=== PATIENT | female | born 1960 | race African-American/Black ===

== ENCOUNTER → 2016-10-07 | Outpatient (CLI) | payer MEDICARE, MEDICAID | LOC: WI 09:12 | PROVIDERS: ATTEND Surgery | DX: K80.80 Other cholelithiasis without obstruction (principal) | CPT/HCPCS: 76705 ==

== ENCOUNTER 2016-12-05 07:21 | Day surgery (SDC) | payer MEDICARE, MEDICAID ==
[~2016-12-05 07:21] MED LIST: ACETAMINOPHEN 325 MG TABLET PO PRN; CEFAZOLIN 1 GM/D5W RTU 1 GM/50 ML RTUPB IV PRN; RINGERS SOLUTION,LACTATED 1,000 ML IV PRN
[2016-12-05] MEDS ORDERED: BUPIVACAINE HCL 0.25 % INJ/PF (2.5 MG/1 ML) 30 ML VIAL ONE (07:25)
[2016-12-05] MEDS ORDERED: FENTANYL CITRATE INJ/PF 250 MCG/5 ML AMPULE ONE (10:11)
[2016-12-05] MEDS ORDERED: MIDAZOLAM 2 MG/2 ML INJ ONE (10:12)
[2016-12-05] MEDS ORDERED: PROPOFOL INJ 200 MG/20 ML VIAL IV ONE (10:12)
[2016-12-05] MEDS ORDERED: ACETAMINOPHEN 100 ML IV ONE (10:12)
[2016-12-05] MEDS ORDERED: EPHEDRINE SULFATE INJ 50 MG/1 ML AMPULE ONE (10:12)
[2016-12-05] MEDS ORDERED: HYDROMORPHONE HCL INJ/PF 2 MG/ML AMPULE ONE (10:12)
[2016-12-05] MEDS ORDERED: OXYCODONE-ACETAMINOPHEN 5-325 MG TABLET PO PRN ×3 (11:19→11:48)
[2016-12-05] MEDS ORDERED: MEPERIDINE HCL/PF INJ 25 MG/1 ML DISP.SYRIN IV PRN (11:19)
[2016-12-05] MEDS ORDERED: PROMETHAZINE HCL INJ 25 MG/1 ML VIAL IV PRN ×2 (11:19)
[2016-12-05] MEDS ORDERED: DIPHENHYDRAMINE HCL 50 MG/ML VIAL IV PRN (11:19)
[2016-12-05] MEDS ORDERED: FENTANYL CITRATE INJ/PF 100 MCG/2 ML AMPUL IV PRN ×3 (11:19)
[2016-12-05] MEDS ORDERED: MORPHINE SULFATE 10 MG/ML INJ IV PRN (11:19)
--- NOTE | 2016-12-05 11:44 | Operative Report ---
Operative Report DATE OF SURGERY: 12/05/16 PREOPERATIVE DIAGNOSIS: Symptomatic cholelithiasis POSTOPERATIVE DIAGNOSIS: Symptomatic cholelithiasis OPERATION: Laparoscopic cholecystectomy SURGEON: EMILY PINEDA ANESTHESIA: GA TISSUE REMOVED OR ALTERED: Gallbladder COMPLICATIONS: None ESTIMATED BLOOD LOSS: minimal INTRAOPERATIVE FINDINGS: None PROCEDURE: Informed consent was obtained. Patient was brought to the operating room placed operating table in supine position. After satisfactory induction of general anesthesia, patient's abdomen was prepped and draped in usual sterile fashion. A infraumbilical midline incision was made and dissection carried down to the fascia the peritoneal cavity entered without difficulty. Farfan trocar was inserted. Pneumoperitoneum produced good patient toleration. 5 mm trocar was placed in the subxiphoid location.Two 5 mm trochars were placed in the right subcostal location. The gallbladder was grasped and retracted cephalad over the dome of the liver. The infundibulum of the gallbladder was grasped retracted laterally and inferiorly thus exposing calot's triangle. The cystic duct gallbladder junction was clearly identified and the cystic duct was clipped and divided. Cystic artery was likewise taken. The gallbladder was taken off the gallbladder bed using the hook electrocautery technique. There was some bleeding at the gallbladder bed which was controlled with electrocautery. There was small amount of bile spillage during the case but no stone spillage. The gallbladder was removed with an Endobag through the Farfan trocar site fascial defect. Operative field was irrigated and irrigant aspirated out. Irrigation fluid was clear at the end of the case. Hemostasis appeared excellent. All trochars were removed under the direct vision a laparoscope to ensure hemostasis. The Farfan trocar site fascial defect was closed with interrupted Vicryl sutures. All skin incisions were closed with subcuticular interrupted Monocryl sutures. Marcaine was injected at the port sites. Patient tolerated procedure well no apparent complications and was taken to the recovery area in stable condition.
[2016-12-05] MEDS ORDERED: ONDANSETRON HCL INJ/PF 4 MG/2 ML SDV IV PRN (11:48)
[2016-12-05] MEDS ORDERED: RINGERS SOLUTION,LACTATED 1,000 ML IV PRN (11:48)
--- NOTE | 2016-12-05 11:48 | PDOC DISCHARGE SUMMARY ---
Discharge Summary (SDC) - Discharge Final Diagnosis: Symptomatically cholelithiasis Date of Surgery: 12/05/16 Discharge Date: 12/05/16 Condition: Good Forms: ASU Anesthesia D/C Instruction, Discharge POC-Surgical Service Treatment or Instructions: Laparoscopic cholecystectomy. May discharge patient home when met discharge criteria. Follow-up with me in 2 weeks. Stay active but avoid strenuous activity. May shower tomorrow night. Keep Steri-Strips on. Prescriptions: Oxycodone HCl/Acetaminophen [Percocet 5-325 mg Tablet] 1 tab PO ASDIR PRN #25 tablet PRN Reason: Referrals: EMILY PINEDA MD [ACTIVE STAFF] - Discharge Diet: As Tolerated Discharge Activity: Activity As Tolerated - Stay active but avoid strenuous activity Report the Following to Your Physician Immediately: Yellow Skin, Fever over 101 Degrees, Unusual Bleeding, Drainage-Foul Smelling
[2016-12-05] MEDS ORDERED: ROCURONIUM BROMIDE INJ 50 MG/5 ML VIAL IV ONE (12:06)
[2016-12-05] MEDS ORDERED: ONDANSETRON HCL INJ/PF 4 MG/2 ML SDV ONE (12:06)
[2016-12-05] MEDS ORDERED: NEOSTIGMINE METHYLSULFATE 10 MG/10 ML VIAL ONE (12:06)
[2016-12-05] MEDS ORDERED: GLYCOPYRROLATE INJ 0.4 MG/2 ML VIAL ONE (12:06)
[2016-12-05] MEDS ORDERED: SUCCINYLCHOLINE CHLORIDE INJ 200 MG/10 ML VIAL ONE (12:06)
[2016-12-05 15:58] VITALS: BP 141/75
== END 2016-12-05 15:58 | disposition home or self-care (01) ==
LOC: OROUT 07:21
PROVIDERS: ATTEND Surgery
PROC: 0FT44ZZ Resection of Gallbladder, Percutaneous Endoscopic Approach (ICD-10-PCS; principal; 2016-12-05 09:30)
DX: K80.10 Calculus of gallbladder with chronic cholecystitis without obstruction (principal); I10 Essential (primary) hypertension; F32.9 Major depressive disorder, single episode, unspecified; E07.9 Disorder of thyroid, unspecified; E11.9 Type 2 diabetes mellitus without complications; J45.909 Unspecified asthma, uncomplicated; Z79.82 Long term (current) use of aspirin; Z79.899 Other long term (current) drug therapy; Z79.84 Long term (current) use of oral hypoglycemic drugs
CPT/HCPCS: 82962; 88304 ×2; 47562; J2250; J0690; J3490 ×2; J3010; J1170; J0330; J2405; J2704; J0131; 790

== ENCOUNTER → 2017-01-10 | Outpatient (CLI) | payer MEDICARE, MEDICAID ==
--- NOTE | 2017-01-10 11:09 | WOMENS IMAGING REPORT ---
EXAM DESCRIPTION: U/S ABDOMEN TOTAL COMPLETED DATE/TIME: 01/10/2017 10:59 am REASON FOR STUDY: ULTRASOUND; R10.84 R10.84 GENERALIZED ABDOMINAL PAIN COMPARISON: October 2016 TECHNIQUE: Dynamic and static grayscale images acquired of the abdomen and recorded on PACS. Additio nal selected color Doppler and spectral images recorded. LIMITATIONS: None. FINDINGS: PANCREAS: No masses. Visualized pancreatic duct normal caliber. LIVER: No masses. Echotexture normal. LIVER VASCULATURE: Normal blood flow is identified in the portal vein. GALLBLADDER: Patient has undergone cholecystectomy since the previous study. ULTRASOUND-DETECTED LOPEZ'S SIGN: Negative. INTRAHEPATIC DUCTS AND COMMON DUCT: CBD and intrahepatic ducts normal caliber. No filling defects. INFERIOR VENA CAVA: Normal flow. AORTA: No aneurysm. RIGHT KIDNEY: 10.3 cm in length. Normal echogenicity. No solid or suspicious masses. No hydron ephrosis. No calcifications. LEFT KIDNEY: 12.6 cm in length. Normal echogenicity. No solid or suspicious masses. No hydrone phrosis. No calcifications. SPLEEN: Normal size. No solid masses. PERITONEAL AND PLEURAL SPACES: No ascites or effusions. OTHER: No other significant finding. IMPRESSION: No significant intra-abdominal abnormalities were identified. Findings as noted above. TECHNICAL DOCUMENTATION: JOB ID: [id number] [employer]- All Rights Reserved
== END ==
LOC: WI 10:15
PROVIDERS: ATTEND Physician Assistant Medical
DX: R10.84 Generalized abdominal pain (principal)
CPT/HCPCS: 76700

== ENCOUNTER → 2017-03-28 | Outpatient (CLI) | payer MEDICARE, MEDICAID ==
--- NOTE | 2017-03-28 10:17 | WOMENS IMAGING REPORT ---
EXAM DESCRIPTION: BILAT SCREENING MAMMO W/CAD COMPLETED DATE/TIME: 03/28/2017 9:45 am REASON FOR STUDY: SCREENING MAMMO Z12.31 ENCNTR SCREEN MAMMOGRAM FOR MALIGNANT NEOPLASM OF J[place] COMPARISON: Annual priors dating back to January 2013. TECHNIQUE: Standard craniocaudal and mediolateral oblique views of each breast recorded using PenBladea l acquisition. LIMITATIONS: None. FINDINGS: No masses, calcifications or architectural distortion. No areas of suspicion. Read with the assistance of CAD. .[facility] - R2 Cenova Version 1.3 .[facility] Imaging - R2 Cenova Version 1.3 .[facility] Imaging - R2 Cenova Version 2.4 .[facility] [place] [place] R2 Cenova Version 2.4 .[facility] - R2 Machine Sole Leveler Version 9.2 IMPRESSION: NORMAL MAMMOGRAM. BIRADS 1. BREAST DENSITY: b. There are scattered areas of fibroglandular density. BIRAD: 1 NEGATIVE RECOMMENDATION: ROUTINE SCREENING COMMENT: The patient has been notified of the results by letter per SA requirements. Additional no tification policies are in place for contacting patient with suspicious or incomplete findings. Quality ID #[id number]: The [employer] recommends an annual screening mammogram for women aged 40 years or over. This facility utilizes a reminder system to ensure that all patients receive reminder letters, and/or direct phone calls for appointments. This includes reminders for routine scr eening mammograms, diagnostic mammograms, or other Breast Imaging Interventions when appropriate. Th is patient will be placed in the appropriate reminder system. The [employer] (ACR) has developed recommendations for screening MRI of the breast s in certain patient populations, to be used in conjunction with mammography. Breast MRI surveillanc e may be appropriate for women with more than 20% lifetime risk of developing breast cancer as deter mined by genetic testing, significant family history of the disease, or history of mantle radiation f or Hodgkins Disease. ACR Practice Guidelines 2008. TECHNICAL DOCUMENTATION: FINDING NUMBER: (1) ASSESSMENT: (1) JOB ID: [id number] [email or web address]- All Rights Reserved
== END ==
LOC: WI 09:22
PROVIDERS: ATTEND Physician Assistant Medical
DX: Z12.31 Encounter for screening mammogram for malignant neoplasm of breast (principal)
CPT/HCPCS: 77067; G0202

== ENCOUNTER 2017-04-20 12:08 | Emergency (ER) | payer MEDICARE, MEDICAID ==
[2017-04-20 12:13] VITALS: BP 134/85
--- NOTE | 2017-04-20 12:31 | ER Document Report ---
HPI - HPI Patient complains to provider of: headache Onset: Yesterday Onset/Duration: Intermittent Quality of pain: Achy Severity: Moderate Pain Level: 3 Context: Patient complains of intermittent headache since yesterday. States she has a history of headaches, and this is not the worst she has ever had. Patient has not taken anything [id number] to help with the headache. Associated Symptoms: Headache Exacerbated by: Denies Relieved by: Denies Similar symptoms previously: Yes Recently seen / treated by doctor: No - ROS ROS below otherwise negative: Yes Systems Reviewed and Negative: Yes All other systems reviewed and negative - CONSTITUTIONAL Constitutional: DENIES: Fever - EENT EENT: DENIES: Congestion - NEURO Neurology: REPORTS: Headache. DENIES: Weakness, Vision blurred, Dizzinesss / Vertigo - CARDIOVASCULAR Cardiovascular: DENIES: Chest pain - RESPIRATORY Respiratory: DENIES: Trouble Breathing - GASTROINTESTINAL Gastrointestinal: DENIES: Abdominal Pain - URINARY Urinary: DENIES: Dysuria - REPRODUCTIVE Reproductive: DENIES: : - MUSCULOSKELETAL Musculoskeletal: DENIES: Extremity pain - DERM Skin Color: Normal Skin Problems: None Past Medical History - General Information source: Patient - Social History Smoking Status: Never Smoker Frequency of alcohol use: None Drug Abuse: None Lives with: Family Family History: Reviewed & Not Pertinent - Past Medical History Cardiac Medical History: Reports: Hx Hypertension Pulmonary Medical History: Reports: Hx Pneumonia Musculoskeltal Medical History: Reports Hx Arthritis - Bilateral hands, Bilateral feet Past Surgical History: Reports: Hx Cholecystectomy, Hx Hysterectomy - Immunizations Hx Diphtheria, Pertussis, Tetanus Vaccination: Yes - < 5 years Vertical Provider Document - CONSTITUTIONAL Agree With Documented VS: Yes Exam Limitations: No Limitations General Appearance: WD/WN, No Apparent Distress - INFECTION CONTROL TRAVEL OUTSIDE OF THE [place] IN LAST 30 DAYS: No - HEENT HEENT: Atraumatic, Normocephalic, PERRLA Notes: TMs dull, throat normal. Pt sniffling in room. - NECK Neck: Normal Inspection, Supple - RESPIRATORY Respiratory: Breath Sounds Normal, No Respiratory Distress O2 Sat by Pulse Oximetry: 97 - CARDIOVASCULAR Cardiovascular: Regular Rate, Regular Rhythm - GI/ABDOMEN Gastrointestinal: Abdomen Soft - MUSCULOSKELETAL/EXTREMETIES Musculoskeletal/Extremeties: MAEW FROM - NEURO Level of Consciousness: Awake, Alert, Appropriate Notes: Cranial nerves grossly intact. - DERM Integumentary: Warm, Dry Course - Re-evaluation Re-evalutation: 04/20/17 12:[address] dated May 2016 was negative. The study was ordered by her primary care physician for evaluation of headaches. 04/20/17 12:50 Patient changed her mind and refused the Toradol injection. Tylenol will be given. - Vital Signs Vital signs: Temp Pulse Resp BP Pulse Ox 98.2 F 71 18 134/85 H 97 04/20/17 12:10 04/20/17 12:10 04/20/17 12:10 04/20/17 12:10 04/20/17 12:10 Discharge - Discharge Clinical Impression: Headache Qualifiers: Headache type: unspecified Headache chronicity pattern: unspecified pattern Intractability: not intractable Qualified Code(s): R51 - Headache Condition: Good Disposition: HOME, SELF-CARE Instructions: Headache ([facility]) Additional Instructions: tylenol or motrin as needed for EASON see your PCP tomorrow for recheck return if worsens and as needed
[2017-04-20] MEDS ORDERED: KETOROLAC TROMETHAMINE 60 MG/2 ML SDV IM ONE (12:33)
[2017-04-20] MEDS ORDERED: ACETAMINOPHEN 325 MG TABLET PO ONE (12:45)
== END 2017-04-20 13:05 | disposition home or self-care (01) ==
LOC: ER 12:08
DX: R51 Headache (principal)
CPT/HCPCS: 99283; A9270; J1885

== ENCOUNTER → 2017-05-14 | Outpatient (CLI) | payer MEDICARE, MEDICAID ==
--- NOTE | 2017-05-14 07:59 | RADIOLOGY REPORT (SQ) ---
EXAM DESCRIPTION: CT HEAD WITHOUT COMPLETED DATE/TIME: 05/14/2017 7:35 am REASON FOR STUDY: HEADACHE (R51) R51 HEADACHE COMPARISON: 05/22/2016 TECHNIQUE: Axial images acquired through the brain without intravenous contrast. Images reviewed wi th bone, brain and subdural windows. Images stored on PACS. All CT scanners at this facility use dose modulation, iterative reconstruction, and/or weight based d osing when appropriate to reduce radiation dose to as low as reasonably achievable (ALARA). [facility]: Dose Right [facility]: CareDose [facility]: Dose Right [facility]: Teradose 4D [facility]: [employer] RADIATION DOSE: Up-to-date CT equipment and radiation dose reduction techniques were employed. CTDIv ol: 49.0 mGy. DLP: 881 mGy-cm. mGy. LIMITATIONS: None. FINDINGS: VENTRICLES: Normal size and contour. CEREBRUM: No masses. No hemorrhage. No midline shift. No evidence for acute infarction. Normal gra y/white matter differentiation. No areas of low density in the white matter. CEREBELLUM: No masses. No hemorrhage. No alteration of density. No evidence for acute infarction. EXTRAAXIAL SPACES: No fluid collections. No masses. ORBITS AND GLOBE: No intra- or extraconal masses. Normal contour of globe without masses. CALVARIUM: No fracture. PARANASAL SINUSES: No fluid or mucosal thickening. SOFT TISSUES: No mass or hematoma. OTHER: No other significant finding. IMPRESSION: NORMAL BRAIN CT WITHOUT CONTRAST. EVIDENCE OF ACUTE STROKE: NO. COMMENT: Quality ID # [id number]: Final reports with documentation of one or more dose reduction techniques (e.g., Automated exposure control, adjustment of the mA and/or kV according to patient size, use of iterative reconstruction technique) TECHNICAL DOCUMENTATION: JOB ID: [id number]- All Rights Reserved
== END ==
LOC: RAD 07:20
PROVIDERS: ATTEND Physician Assistant Medical
DX: R51 Headache (principal)
CPT/HCPCS: 70450

== ENCOUNTER → 2017-07-03 | Outpatient (CLI) | payer MEDICARE, MEDICAID ==
--- NOTE | 2017-07-03 10:49 | RADIOLOGY REPORT (SQ) ---
EXAM DESCRIPTION: FOREARM LEFT COMPLETED DATE/TIME: 07/03/2017 10:16 am REASON FOR STUDY: PAIN IN LEFT FOREARM M79.632 PAIN IN LEFT FOREARM M79.605 PAIN IN LEFT LEG COMPARISON: None. NUMBER OF VIEWS: Two views. TECHNIQUE: Two radiographic images acquired of the left forearm, including elbow and wrist in at michelle st one projection. LIMITATIONS: None. FINDINGS: MINERALIZATION: Normal. BONES: No acute fracture. No worrisome bone lesions. SOFT TISSUES: No obvious swelling or foreign body. OTHER: No other significant finding. IMPRESSION: NEGATIVE STUDY OF THE LEFT FOREARM. NO RADIOGRAPHIC EVIDENCE OF ACUTE INJURY. TECHNICAL DOCUMENTATION: JOB ID: [id number] [employer] - [employer]- All Rights Reserved
--- NOTE | 2017-07-03 11:00 | RADIOLOGY REPORT (SQ) ---
EXAM DESCRIPTION: TIBIA FIBULA LEFT COMPLETED DATE/TIME: 07/03/2017 10:16 am REASON FOR STUDY: PAIN IN LEFT LEG M79.632 PAIN IN LEFT FOREARM M79.605 PAIN IN LEFT LEG COMPARISON: None. NUMBER OF VIEWS: Two views. TECHNIQUE: Two radiographic images acquired of the left tibia and fibula to include the knee and ank le in at least one projection. LIMITATIONS: None. FINDINGS: MINERALIZATION: Normal. BONES: No acute fracture or dislocation. No worrisome bone lesions. SOFT TISSUES: No obvious swelling or foreign body. OTHER: No other significant finding. IMPRESSION: NEGATIVE STUDY OF THE LEFT TIBIA AND FIBULA. NO RADIOGRAPHIC EVIDENCE OF ACUTE INJURY. TECHNICAL DOCUMENTATION: JOB ID: [id number] [employer]- All Rights Reserved
== END ==
LOC: OD 09:52
PROVIDERS: ATTEND Physician Assistant Medical
DX: M79.632 Pain in left forearm (principal); M79.605 Pain in left leg

== ENCOUNTER → 2018-02-26 | Outpatient (CLI) | payer MEDICARE, MEDICAID ==
--- NOTE | 2018-02-26 12:04 | RADIOLOGY REPORT (SQ) ---
EXAM DESCRIPTION: HAND BILATERAL 3 VIEWS; FOOT BILATERAL 3 VIEWS COMPLETED DATE/TIME: 02/26/2018 11:14 am REASON FOR STUDY: PAIN IN UNSPECIFIED HAND; PAIN IN UNSPECIFIED ANKLE AND JOINTS OF UNSPECIFIED FOOT COMPARISON: None. FINDINGS: Bilateral hands: 3 images of each hand. Includes ball catcher's view of the bilateral alberts nds. No priors for correlation. Mild osteopenia. No fracture or bone lesion. Joint spaces look ge nerally relatively well preserved. No aggressive erosions or bulky osteophytes. No subluxation or d islocation. Bilateral feet: Osteopenic. Slight 2nd metatarsal deformities bilaterally. Suggestive of old traum a. No acute fracture or worrisome bone lesion. No ankle joint effusion. IMPRESSION: 1. Osteopenic. 2. Relatively unremarkable hand radiographs bilaterally. No inflammator y arthropathy evident. 3. No acute or suspicious foot findings. TECHNICAL DOCUMENTATION: JOB ID: [id number] Reading location - IP/workstation name: [facility]-RR
--- NOTE | 2018-02-26 12:04 | RADIOLOGY REPORT (SQ) ---
EXAM DESCRIPTION: HAND BILATERAL 3 VIEWS; FOOT BILATERAL 3 VIEWS COMPLETED DATE/TIME: 02/26/2018 11:14 am REASON FOR STUDY: PAIN IN UNSPECIFIED HAND; PAIN IN UNSPECIFIED ANKLE AND JOINTS OF UNSPECIFIED FOOT COMPARISON: None. FINDINGS: Bilateral hands: 3 images of each hand. Includes ball catcher's view of the bilateral alberts nds. No priors for correlation. Mild osteopenia. No fracture or bone lesion. Joint spaces look ge nerally relatively well preserved. No aggressive erosions or bulky osteophytes. No subluxation or d islocation. Bilateral feet: Osteopenic. Slight 2nd metatarsal deformities bilaterally. Suggestive of old traum a. No acute fracture or worrisome bone lesion. No ankle joint effusion. IMPRESSION: 1. Osteopenic. 2. Relatively unremarkable hand radiographs bilaterally. No inflammator y arthropathy evident. 3. No acute or suspicious foot findings. TECHNICAL DOCUMENTATION: JOB ID: [id number] Reading location - IP/workstation name: [facility]-RR
== END ==
LOC: OD 10:41
PROVIDERS: ATTEND Physician Assistant Medical
DX: M25.579 Pain in unspecified ankle and joints of unspecified foot (principal); M79.643 Pain in unspecified hand

== ENCOUNTER → 2018-04-13 | Outpatient (CLI) | payer MEDICARE, MEDICAID ==
--- NOTE | 2018-04-13 11:00 | WOMENS IMAGING REPORT ---
EXAM DESCRIPTION: BONE DENSITY HIP/SPINE COMPLETED DATE/TIME: 04/13/2018 10:12 am REASON FOR STUDY: BILATERAL SCREENING MAMMO/Z12.31 Z12.31 ENCNTR SCREEN MAMMOGRAM FOR MALIGNANT RADHA PLASM OF JESSEE M89.9 DISORDER OF BONE, UNSPECIFIED COMPARISON: None. TECHNIQUE: Dual-Energy X-ray Absorptiometry (DEXA) of the AP Spine and Hip. LIMITATIONS: None. FINDINGS: LUMBAR SPINE: The bone mineral density (BMD) measured from L1-L4 in the AP projection correlates with a T-score of -2.9, which is osteoporosis as defined by the World Health Organization. HIP: The bone mineral density (BMD) measured in the left hip correlates with a T-score of -2.9, which is o steoporosis as defined by the World Health Organization. IMPRESSION: 1. LUMBAR SPINE: Osteoporosis 2. HIP: Osteoporosis COMMENT: The World Health Organization defines low BMD as follows: T-score: Normal: Greater than -1.0 Osteopenia: Between -1.0 and -2.5 Osteoporosis: Less than -2.5 without fractures Established osteoporosis: Less than -2.5 with fractures In general, you may wish to consider: Diagnosis Treatment Follow-up DEXA Normal BMD Prevention 2-3 years Osteopenia Prevention/Therapy 1-2 years Osteoporosis Therapy Yearly TECHNICAL DOCUMENTATION: JOB ID: [id number]- All Rights Reserved Reading location - IP/workstation name: [email or web address]
--- NOTE | 2018-04-13 14:16 | WOMENS IMAGING REPORT ---
EXAM DESCRIPTION: BILAT SCREENING MAMMO W/CAD COMPLETED DATE/TIME: 04/13/2018 10:12 am REASON FOR STUDY: BILATERAL SCREENING MAMMO/Z12.31 Z12.31 ENCNTR SCREEN MAMMOGRAM FOR MALIGNANT RADHA PLASM OF J[place] M89.9 DISORDER OF BONE, UNSPECIFIED COMPARISON: Multiple since 2012 TECHNIQUE: Standard craniocaudal and mediolateral oblique views of each breast recorded using digita l acquisition. LIMITATIONS: None. FINDINGS: Findings present which are benign by mammographic criteria. No suspicious masses, calcifi cations or architectural distortion. Pertinent benign findings: Right breast stereotactic biopsy clips, stable left breast intramammary ly mph node and fibroadenoma Read with the assistance of CAD. .[facility] - R2 Cenova Version 1.3 .[facility] Imaging - R2 Cenova Version 1.3 .[facility] Imaging - R2 Cenova Version 2.4 .[facility] [place] - R2 Cenova Version 2.4 .[facility] - R2 Senior [employer] Engineer Version 9.2 Benign mammographic findings may include one or more of the following: Smooth masses, popcorn/rim/co arse calcifications, asymmetries, post-procedure changes, and lesions with long-standing stability. IMPRESSION: BENIGN MAMMOGRAPHIC FINDINGS. BIRADS 2 BREAST DENSITY: c. The breasts are heterogeneously dense, which may obscure small masses. BIRAD: 2 BENIGN FINDING(S) RECOMMENDATION: ROUTINE SCREENING Please continue yearly bilateral screening mammography/tomosynthesis in April 2019 COMMENT: The patient has been notified of the results by letter per SA requirements. Additional no tification policies are in place for contacting patient with suspicious or incomplete findings. Quality ID #[id number]: The [employer] [employer] recommends an annual screening mammogram for women aged 40 years or over. This facility utilizes a reminder system to ensure that all patients receive reminder letters, and/or direct phone calls for appointments. This includes reminders for routine scr eening mammograms, diagnostic mammograms, or other Breast Imaging Interventions when appropriate. Th is patient will be placed in the appropriate reminder system. The [employer] [employer] (ACR) has developed recommendations for screening MRI of the breast s in certain patient populations, to be used in conjunction with mammography. Breast MRI surveillanc e may be appropriate for women with more than 20% lifetime risk of developing breast cancer as deter mined by genetic testing, significant family history of the disease, or history of mantle radiation f or Hodgkins Disease. ACR Practice Guidelines 2008. TECHNICAL DOCUMENTATION: FINDING NUMBER: (1) ASSESSMENT: (1) JOB ID: [id number] [employer]- All Rights Reserved Reading location - IP/workstation name: [facility]
== END ==
LOC: WI 09:35
PROVIDERS: ATTEND Physician Assistant Medical
DX: Z12.31 Encounter for screening mammogram for malignant neoplasm of breast (principal); M81.0 Age-related osteoporosis without current pathological fracture
CPT/HCPCS: 77067; 77080

== ENCOUNTER 2018-06-16 10:00 | Emergency (ER) | payer MEDICARE, MEDICAID ==
--- NOTE | 2018-06-16 10:50 | ER Document Report ---
ED ENT - General Chief Complaint: Sore Throat Stated Complaint: FEVER/SORE THROAT Time Seen by Provider: 06/16/18 10:45 Mode of Arrival: Ambulatory Information source: Patient Notes: Patient is a 57-year-old female comes emergency room complaining of congestion runny nose and sore throat. Patient states that she was held out in the rain yesterday waiting for To come back home from work and believes this is what started her symptoms. She had a difficult time sleeping last night because of the runny nose and congestion woke up this morning with a bad sore throat. She states she felt like she had a fever yesterday but did not measure it because she does not have a thermometer. Patient states she has only a history of hypertension and she does not smoke. She is here today because of the sore throat and secondary for the nasal congestion. TRAVEL OUTSIDE OF THE [place] IN LAST 30 DAYS: No - HPI Patient complains to provider of: Nose problem, Throat problem Onset: Yesterday Onset/Duration: Sudden, Persistent, Worse Quality of pain: Achy Severity: Moderate Pain Level: 3 Location of pain: Ears, Nose, Sinus, Throat Associated symptoms: Ear pain, Fever, Headache, Runny nose, Sinus pain, Sinus drainage, Sore throat. denies: Stiff neck Similar symptoms previously: No Recently seen / treated by doctor: No - Related Data Allergies/Adverse Reactions: prednisone [Prednisone] Adverse Reaction (Verified 06/16/18 10:16) VOMITING Past Medical History - General Information source: Patient - Social History Smoking Status: Never Smoker Cigarette use (# per day): No Chew tobacco use (# tins/day): No Smoking Education Provided: No Frequency of alcohol use: None Drug Abuse: None Family History: Reviewed & Not Pertinent Patient has suicidal ideation: No Patient has homicidal ideation: No - Past Medical History Cardiac Medical History: Reports: Hx Hypertension Denies: Hx Coronary Artery Disease, Hx Heart Attack Pulmonary Medical History: Reports: Hx Pneumonia Denies: Hx Asthma, Hx Bronchitis, Hx COPD Neurological Medical History: Denies: Hx Cerebrovascular Accident, Hx Seizures Renal/ Medical History: Denies: Hx Peritoneal Dialysis Musculoskeletal Medical History: Reports Hx Arthritis - Bilateral hands, Bilateral feet Past Surgical History: Reports: Hx Cholecystectomy, Hx Hysterectomy - Immunizations Hx Diphtheria, Pertussis, Tetanus Vaccination: Yes - < 5 years Review of Systems - Review of Systems Constitutional: Fever, Malaise EENT: Ear pain, Nose pain, Nose congestion, Sinus pressure, Throat pain Cardiovascular: No symptoms reported Respiratory: No symptoms reported Gastrointestinal: No symptoms reported Genitourinary: No symptoms reported Female Genitourinary: No symptoms reported Musculoskeletal: No symptoms reported Skin: No symptoms reported Hematologic/Lymphatic: No symptoms reported Neurological/Psychological: No symptoms reported -: Yes All other systems reviewed and negative Physical Exam - Vital signs Notes: At time of physical exam vital signs have not been placed in the computer yet but these are the vital signs as follows temp 98.6 pulse of 79, blood pressure 141/72, respiratory rate 20, and saturation is 99% on room air. PHYSICAL EXAMINATION: GENERAL: This is a well-nourished well-developed 57-year-old female who is in no apparent distress on physical examination. Although she does appear to be somewhat uncomfortable. HEAD: Atraumatic, normocephalic. EYES: Pupils equal round and reactive to light, extraocular movements intact, conjunctiva are normal. ENT: Physical exam of the head and upper airway showed nasal mucosa to be moderately erythematous and edematous with clear rhinorrhea noted. Also noted is bilateral nasal congestion. Patient also displays bilateral maxillary and sinus tenderness to palpation. Examination of bilateral ears show they have TMs are bulging with positive air levels but no fluid. External canals are normal in appearance with mild erythema there is minimal cerumen in it does not obscure the view of the TMs. The continuation of the oral exam shows no cavity the posterior pharynx shows moderate amount of erythema with no exudate that the uvula is midline with moderate erythema and no exudate there is no encroachment upon the uvula at this time. There is drainage in the posterior pharynx from the in the sinuses that apparently is much thicker and a little more green. The tonsils are bilaterally and swollen but no exudate. NECK: Patient's neck has normal range of motion so there is no meningeal signs. Neck is very supple. Patient does display bilateral anterior cervical lymphadenopathy to palpation. LUNGS: Auscultation patient's lung rivero show she has bilateral breath sounds with breath sounds moderately decreased throughout there is a faint inspiratory and expiratory wheeze noted. There is no rhonchi or rales heard. HEART: Regular rate and rhythm without murmurs ABDOMEN: Soft, nontender, nondistended abdomen. No guarding, no rebound. No masses appreciated. Female : deferred Musculoskeletal: Normal range of motion, no pitting or edema. No cyanosis. NEUROLOGICAL: Cranial nerves grossly intact. Normal speech, normal gait. Normal sensory, motor exams PSYCH: Normal mood, normal affect. SKIN: Warm, Dry, normal turgor, no rashes or lesions noted. Course - Re-evaluation Re-evalutation: 06/16/18 10:55 The patient currently does not have a fever physical exam leads me to believe she has a very bad pharyngitis early bronchitis than definitely a sinus involvement. I do believe at this time we will treat patient for a pharyngitis which I will place her on an antibiotic for because it looks bad enough. I am not going to culture her throat at this time. I had just does not appear to be far enough along that we would even get a positive on culture but I believe is early enough in the presentation that she needs to be on an antibiotic. She also place her on a steroid taper and some Chlor-Trimeton. We will send her back to work in 2 days. 06/16/18 11:02 I started writing the patient's prescriptions and when I get the prednisone I got a kick back that she was allergic to the so I went to the room and asked her and patient says she does not know what she is allergic to them as it was on your chart and she said well it was on my chart and must be but she really does not know so we are not going to be prescribing prednisone. Discharge - Discharge Clinical Impression: Bronchitis Pharyngitis Qualifiers: Pharyngitis/tonsillitis etiology: unspecified etiology Qualified Code(s): J02.9 - Acute pharyngitis, unspecified Sinusitis Qualifiers: Sinusitis location: maxillary Chronicity: acute Recurrence: non-recurrent Qualified Code(s): J01.00 - Acute maxillary sinusitis, unspecified Condition: Stable Disposition: HOME, SELF-CARE Instructions: Sore Throat ([facility]), Sinusitis ([facility]) Additional Instructions: Home and rest. Medication as prescribed. Tylenol alternating with Motrin every 4 hours to keep the fever and body aches and pains down. Push fluids but avoid milk and dairy for the next 48 hours. Use warm salt water gargles 3-4 times a day. Use just a chip bottle of nasal saline to keep the nose moist and secretions thin. Hydrate yourself well. Return to ER if you have any concerns or problems. Prescriptions: Azithromycin [Zithromax 250 mg Tablet] 250 mg PO ASDIR PRN #6 tablet PRN Reason: Chlorpheniramine Maleate [Chlor-Trimeton 8 mg Tablet] 1 tab PO BID PRN #1 pkg PRN Reason: Referrals: KYREE LEBRON PA-C [Primary Care Provider] - Follow up as needed
[2018-06-16 10:51] VITALS: BP 141/72
== END 2018-06-16 11:10 | disposition home or self-care (01) ==
LOC: ER 10:00
DX: J02.9 Acute pharyngitis, unspecified (principal); J01.00 Acute maxillary sinusitis, unspecified; J40 Bronchitis, not specified as acute or chronic; R09.89 Other specified symptoms and signs involving the circulatory and respiratory systems; R09.81 Nasal congestion; J35.1 Hypertrophy of tonsils; R51 Headache; R53.81 Other malaise; R06.2 Wheezing; R59.0 Localized enlarged lymph nodes; I10 Essential (primary) hypertension; Z87.01 Personal history of pneumonia (recurrent)
CPT/HCPCS: 99282

== ENCOUNTER → 2018-09-28 | Outpatient (CLI) | payer MEDICARE, MEDICAID ==
--- NOTE | 2018-09-28 12:49 | RADIOLOGY REPORT (SQ) ---
EXAM DESCRIPTION: ABDOMEN 2 VIEWS COMPLETED DATE/TIME: 09/28/2018 11:05 am REASON FOR STUDY: UNSPECIFIED ABDOMINAL PAIN R10.9 UNSPECIFIED ABDOMINAL PAIN COMPARISON: None. NUMBER OF VIEWS: Two views. TECHNIQUE: Supine and erect/decubitus radiographic images of the abdomen acquired. LIMITATIONS: None. FINDINGS: FREE AIR: None. No abnormal gas collections. LUNG BASES: Clear. BOWEL GAS PATTERN: Nonobstructive pattern. No dilated loops or air fluid levels. CALCIFICATIONS: No suspicious calcifications. SOFT TISSUES: No gross mass or suggestion of organomegaly. HARDWARE: None in the abdomen. BONES: No acute fracture. No worrisome bone lesions. OTHER: No other significant finding. IMPRESSION: NO RADIOGRAPHIC EVIDENCE FOR ACUTE ABDOMINAL DISEASE. TECHNICAL DOCUMENTATION: JOB ID: [id number] [email or web address]- All Rights Reserved Reading location - IP/workstation name: [email or web address]
== END ==
LOC: OD 10:43
PROVIDERS: ATTEND Surgery
DX: R10.9 Unspecified abdominal pain (principal)
CPT/HCPCS: 74019

== ENCOUNTER → 2018-10-08 | Outpatient (CLI) | payer MEDICARE, MEDICAID ==
--- NOTE | 2018-10-08 15:43 | RADIOLOGY REPORT (SQ) ---
EXAM DESCRIPTION: NM GASTRIC EMPTYING STUDY COMPLETED DATE/TIME: 10/08/2018 1:41 pm REASON FOR STUDY: UNSPECIFIED ABDOMINAL PAIN R10.9 UNSPECIFIED ABDOMINAL PAIN COMPARISON: None. RADIONUCLIDE AND DOSE: 2 millicuries Tc-99m Sulfur Colloid. A wide variety of solid foods have been used. The route of agent administration: Oral. TECHNIQUE: 1 minute serial static imaging performed at time of meal, 1 hour, 2 hours, 3 hours, and 4 hours as needed. Once stomach reaches 90% emptying, the test is complete. Image intensity values pl otted with respect to time with linear regression algorithm. LIMITATIONS: None. FINDINGS: Patient was observed for 4 hours. Immediate post meal serves as baseline. Gastric emptying at 30 minutes was 28.8%. Gastric emptying at 60 minutes was 49.4% Gastric emptying at 90 minutes was 64%. Gastric emptying at 120 minutes was 74.4%. Gastric emptying at 240 minutes was 93.4% Normal values: 60 minutes: 30-90% retained. If less than 30%, abnormally rapid emptying. If greater than 90%, del ayed gastric emptying. 120 minutes: <60% retained. If greater than 60%, delayed gastric emptying. 240 minutes: <10% retained. If greater than 10%, delayed gastric emptying. IMPRESSION: NORMAL GASTRIC EMPTYING. TECHNICAL DOCUMENTATION: JOB ID: [id number] [employer]- All Rights Reserved rev Reading location - IP/workstation name: [email or web address]
== END ==
LOC: RAD 08:54
PROVIDERS: ATTEND Surgery
DX: R10.9 Unspecified abdominal pain (principal)
CPT/HCPCS: 78264; A9541

== ENCOUNTER 2018-12-22 09:55 | Day surgery (SDC) | payer MEDICARE, MEDICAID ==
--- NOTE | 2018-12-15 16:14 | EKG REPORT ---
SEVERITY:- BORDERLINE ECG - SINUS RHYTHM LOW VOLTAGE THROUGHOUT NONSPECIFIC ST-T CHANGES ANTERIOR LEADS : Confirmed by: Guanakito Callaway MD 15-Dec-2018 16:14:20
[~2018-12-22 09:55] MED LIST changes: -ACETAMINOPHEN 325 MG TABLET PO PRN; -CEFAZOLIN 1 GM/D5W RTU 1 GM/50 ML RTUPB IV PRN; +MIDAZOLAM 2 MG/2 ML INJ ONE; +PROPOFOL INJ 200 MG/20 ML VIAL IV ONE; -RINGERS SOLUTION,LACTATED 1,000 ML IV PRN
--- NOTE | 2018-12-22 11:37 | Operative Report ---
Nonrecallable Operative Report DATE OF SURGERY: 12/22/18 PREOPERATIVE DIAGNOSIS: Abdominal pain, likely gastritis. POSTOPERATIVE DIAGNOSIS: 1. Gastritis with shallow gastric ulcerations. 2. Sliding-type hiatal hernia. 3. Reflux esophagitis OPERATION: EGD with biopsy SURGEON: ELY DESAI ANESTHESIA: LMAC TISSUE REMOVED OR ALTERED: 1. Antrum biopsy. 2. Distal esophagus. COMPLICATIONS: None apparent ESTIMATED BLOOD LOSS: Minimal PROCEDURE: Procedure in detail: After informed consent was obtained, the patient was brought to the operating room and laid in the left lateral decubitus position. The endoscope was then passed down the oropharynx, down the esophagus, and into the stomach. The stomach was insufflated with air. Immediately there was noted to be severe gastritis throughout the stomach extending from the cardia to the antrum. The scope was pushed into the first and second portions of the duodenum, through the pylorus. The duodenum appeared normal in appearance. There was no obvious petechiae or ulceration. The scope was pulled back into the antrum, where a biopsy was performed to rule out H. pylori infection. Retroflexion was then performed. There was a sliding-type hiatal hernia identified. The scope was pulled up into the distal esophagus. Reflux esophagitis was identified. Biopsy was taken at the most affected portion. The scope was then withdrawn up the remainder of the esophagus. The remainder of the esophagus appeared smooth in contour without masses, lesions, or other abnormalities. The scope was removed from the oropharynx, and the procedure was concluded. All sponge, instrument, and needle counts were correct x2. Condition: Stable.
--- NOTE | 2018-12-22 11:43 | Discharge Summary ---
Discharge Summary (SDC) - Discharge Final Diagnosis: Severe gastritis, hiatal hernia, reflux esophagitis Date of Surgery: 12/22/18 Discharge Date: 12/22/18 Condition: Stable Treatment or Instructions: Discharge home. Diet as tolerated. Activity: Nonstrenuous. Avoid caffeine, nicotine, NSAIDs, steroids, soda pop, and alcohol. Sucre fate 1 g p.o. 4 times per day. Zantac 300 mg p.o. daily. Follow-up with me in 2 weeks. Referrals: DAVIS TINOCO PA-C [Primary Care Provider] - Discharge Diet: As Tolerated Respiratory Treatments at Home: Deep Breathing/Coughing, Incentive Spirometer Discharge Activity: Activity As Tolerated, Balance Activity w/Rest Report the Following to Your Physician Immediately: Shortness of Breath, Nausea, Vomiting, Increase in Pain, Fever over 101 Degrees, Unusual Bleeding, Redness
[2018-12-22 11:58] VITALS: BP 119/64
== END 2018-12-22 12:15 | disposition home or self-care (01) ==
LOC: OROUT 09:55
PROVIDERS: ATTEND Surgery
DX: K29.50 Unspecified chronic gastritis without bleeding (principal); K44.9 Diaphragmatic hernia without obstruction or gangrene; K21.0 Gastro-esophageal reflux disease with esophagitis; E07.9 Disorder of thyroid, unspecified; E11.9 Type 2 diabetes mellitus without complications; I10 Essential (primary) hypertension; J45.909 Unspecified asthma, uncomplicated; K62.5 Hemorrhage of anus and rectum; Z79.899 Other long term (current) drug therapy
CPT/HCPCS: 43239; 93005; 88342 ×2; 88305 ×2; 93010; J2704; 731; J2250

== ENCOUNTER 2019-08-17 13:01 | Emergency (ER) | payer MEDICARE, MEDICAID ==
[2019-08-17 13:08] VITALS: BP 114/50
[2019-08-17] MEDS ORDERED: ACETAMINOPHEN 325 MG TABLET PO ONE (13:31)
[2019-08-17] MEDS ORDERED: NORMAL SALINE 1000 ML 1,000 ML IV ONE (13:31)
[2019-08-17] MEDS ORDERED: METOCLOPRAMIDE HCL INJ/PF 10 MG/2 ML SDV IV ONE (13:31)
--- NOTE | 2019-08-17 13:33 | ER Document Report ---
ED Medical Screen (RME) - General Chief Complaint: Dizziness Stated Complaint: DIZZINESS/HEADACHE Time Seen by Provider: 08/17/19 13:31 Primary Care Provider: ELY DESAI MD [Primary Care Provider] - Follow up as needed TRAVEL OUTSIDE OF THE [place] IN LAST 30 DAYS: No - HPI Notes: 08/17/19 13:32 Patient is a 59-year-old female with a history of hypertension, heart murmur, a nd previous headaches who presents complaining of a mild headache to the frontal area that is been present since yesterday with intermittent dizziness. She is not on any blood thinning medications. No injury. Patient states that this is not the worst headache of her life and did not start as a thunderclap. She is otherwise eating and drinking without difficulty, but does have some nausea. She is urinating normally. She is able to ambulate without difficulty. No fever. No chest pain or shortness of breath. I have treated and performed a rapid initial assessment of this patient. A comp rehensive ED assessment and evaluation of the patient, analysis of test results and completion of medical decision making process will be conducted by additional ED providers. PHYSICAL EXAMINATION: GENERAL: Well-appearing, well-nourished and in no acute distress. A&Ox4. Answers questions appropriately. Neuro: Cranial nerves grossly intact, NIH 0, GCS 15. - Related Data Allergies/Adverse Reactions: prednisone [Prednisone] Adverse Reaction (Verified 12/22/18 10:30) VOMITING Past Medical History - Past Medical History Cardiac Medical History: Reports: Hx Hypertension Denies: Hx Coronary Artery Disease, Hx Heart Attack Pulmonary Medical History: Reports: Hx Asthma - YEARS AGO Denies: Hx Bronchitis, Hx COPD, Hx Pneumonia Neurological Medical History: Denies: Hx Cerebrovascular Accident, Hx Seizures Renal/ Medical History: Denies: Hx Peritoneal Dialysis Musculoskeltal Medical History: Reports Hx Arthritis - RADHAMES HANDS/ FEET Past Surgical History: Reports: Hx Cholecystectomy, Hx Hysterectomy - Immunizations Hx Diphtheria, Pertussis, Tetanus Vaccination: - UNSURE Physical Exam - Vital signs Vitals: Temp Pulse Resp BP Pulse Ox 98.4 F 81 20 114/50 L 97 08/17/19 13:07 08/17/19 13:07 08/17/19 13:07 08/17/19 13:07 08/17/19 13:07 Course - Vital Signs Vital signs: Temp Pulse Resp BP Pulse Ox 98.4 F 81 20 114/50 L 97 08/17/19 13:07 08/17/19 13:07 08/17/19 13:07 08/17/19 13:07 08/17/19 13:07 Doctor's Discharge - Discharge Referrals: ELY DESAI MD [Primary Care Provider] - Follow up as needed
[2019-08-17 14:44] LABS: ABSOLUTE EOSINOPHILS # (AUTO) 0.2 10^3/uL (0.0-0.6); ABSOLUTE LYMPHOCYTES (AUTO) 1.6 10^3/uL (0.5-4.7); ABSOLUTE MONOCYTES (AUTO) 0.3 10^3/uL (0.1-1.4); ABSOLUTE NEUT (AUTO) 2.7 10^3/uL (1.7-8.2); BASOPHILS % (AUTO) 0.6 % (0-2); EOSINOPHILS % (AUTO) 3.7 % (0-6); HEMATOCRIT 36.9 % (36.0-47.0); HEMOGLOBIN 12.2 g/dL (12.0-15.5); LYMPHOCYTES % (AUTO) 32.8 % (13-45); MEAN CORPUSCULAR HEMOGLOBIN 25.8 pg (27.0-33.4); MEAN CORPUSCULAR VOLUME 78 fl (80-97); MONOCYTES % (AUTO) 5.7 % (3-13); PLATELET COUNT 214 10^3/uL (150-450); RED BLOOD COUNT 4.72 10^6/uL (3.72-5.28); RED CELL DISTRIBUTION WIDTH 14.5 % (11.5-14.0); SEGMENTED NEUTROPHILS % (AUTO) 57.2 % (42-78); TOTAL CELLS COUNTED % (AUTO) 100 %; WHITE BLOOD COUNT 4.8 10^3/uL (4.0-10.5)
[2019-08-17 14:59] LABS: ALBUMIN 3.9 g/dL (3.5-5.0); ALKALINE PHOSPHATASE 73 U/L (38-126); ANION GAP 8 (5-19); ASPARTATE AMINO TRANSFERASE 25 U/L (14-36); BILIRUBIN,DIRECT 0.2 mg/dL (0.0-0.4); BILIRUBIN,TOTAL 0.5 mg/dL (0.2-1.3); BLOOD UREA NITROGEN 11 mg/dL (7-20); CALCIUM 9.9 mg/dL (8.4-10.2); CARBON DIOXIDE 33 mmol/L (22-30); CHLORIDE 103 mmol/L (98-107); GLUCOSE 108 mg/dL (75-110); POTASSIUM 3.6 mmol/L (3.6-5.0); TOTAL PROTEIN 7.5 g/dL (6.3-8.2)
[2019-08-17 15:06] LABS: APPEARANCE,URINE CLOUDY; BILIRUBIN,URINE NEGATIVE (NEGATIVE); CALCIUM OXALATE CRYSTALS,URINE MANY /HPF; COLOR,URINE AMBER; GLUCOSE, URINE NEGATIVE (NEGATIVE); KETONES,URINE TRACE mg/dL (NEGATIVE); PROTEIN,URINE 100 mg/dL (NEGATIVE); URINE SPECIFIC GRAVITY 1.028
== END 2019-08-17 15:47 | disposition left against medical advice (07) ==
LOC: ER 13:01
DX: R51 Headache (principal); I10 Essential (primary) hypertension; R42 Dizziness and giddiness; J45.909 Unspecified asthma, uncomplicated; Z53.20 Procedure and treatment not carried out because of patient's decision for unspecified reasons
CPT/HCPCS: 99281; 36415; 85025; 80053; 81001; A9270

== ENCOUNTER 2019-09-06 11:32 | Emergency (ER) | payer MEDICARE, MEDICAID ==
--- NOTE | 2019-09-06 12:21 | ER Document Report ---
ED Medical Screen (RME) - General Chief Complaint: Blood Pressure Problem Stated Complaint: BLOOD PRESSURE ISSUES Time Seen by Provider: 09/06/19 12:15 Primary Care Provider: ELY DESAI MD [Primary Care Provider] - Follow up as needed Mode of Arrival: Ambulatory Information source: Patient Notes: 59-year-old female presents to ED for complaint of low iron and a headache. She states she went to the blood bank today and they told her her iron was low and she knows that she needs to eat food with iron and to increase the iron. Patient states she does not have a primary care doctor. She states she has not had anybody treating her blood pressure she just has had the blood bank telling her to increase her foods with iron. She states she has not had any blood work concerning her arm. Patient is alert oriented respirations regular nonlabored speaking in full sentences. She states she is tired this morning. She went to a doctor in May or June she still has refills on her thyroid medicine and her blood pressure medicine. I have greeted and performed a rapid initial assessment of this patient. A comprehensive ED assessment and evaluation of the patient, analysis of test results and completion of medical decision making process will be conducted by an additional ED providers. TRAVEL OUTSIDE OF THE [place] IN LAST 30 DAYS: No - Related Data Allergies/Adverse Reactions: prednisone [Prednisone] Adverse Reaction (Verified 12/22/18 10:30) VOMITING Past Medical History - Past Medical History Cardiac Medical History: Reports: Hx Hypertension Denies: Hx Coronary Artery Disease, Hx Heart Attack Pulmonary Medical History: Reports: Hx Asthma - YEARS AGO Denies: Hx Bronchitis, Hx COPD, Hx Pneumonia Neurological Medical History: Denies: Hx Cerebrovascular Accident, Hx Seizures Renal/ Medical History: Denies: Hx Peritoneal Dialysis Musculoskeltal Medical History: Reports Hx Arthritis - RADHAMES HANDS/ FEET Past Surgical History: Reports: Hx Cholecystectomy, Hx Hysterectomy - Immunizations Hx Diphtheria, Pertussis, Tetanus Vaccination: - UNSURE Physical Exam - Vital signs Vitals: Temp Pulse Resp BP Pulse Ox 98.4 F 79 18 147/63 H 96 09/06/19 12:13 09/06/19 12:13 09/06/19 12:13 09/06/19 12:13 09/06/19 12:13 Course - Vital Signs Vital signs: Temp Pulse Resp BP Pulse Ox 98.4 F 79 18 147/63 H 96 09/06/19 12:13 09/06/19 12:13 09/06/19 12:13 09/06/19 12:13 09/06/19 12:13 Doctor's Discharge - Discharge Referrals: ELY DESAI MD [Primary Care Provider] - Follow up as needed
[2019-09-06 13:27] LABS: ABSOLUTE EOSINOPHILS # (AUTO) 0.2 10^3/uL (0.0-0.6); ABSOLUTE LYMPHOCYTES (AUTO) 1.4 10^3/uL (0.5-4.7); ABSOLUTE MONOCYTES (AUTO) 0.3 10^3/uL (0.1-1.4); ABSOLUTE NEUT (AUTO) 2.6 10^3/uL (1.7-8.2); ABSOLUTE RETICS # 0.053 10^6/uL (0.028-0.122); BASOPHILS % (AUTO) 0.4 % (0-2); EOSINOPHILS % (AUTO) 3.6 % (0-6); HEMATOCRIT 34.8 % (36.0-47.0); HEMOGLOBIN 11.4 g/dL (12.0-15.5); LYMPHOCYTES % (AUTO) 31.2 % (13-45); MEAN CORPUSCULAR HEMOGLOBIN 25.3 pg (27.0-33.4); MEAN CORPUSCULAR HGB CONC 32.9 g/dL (32.0-36.0); MEAN CORPUSCULAR VOLUME 77 fl (80-97); MONOCYTES % (AUTO) 6.9 % (3-13); PLATELET COUNT 208 10^3/uL (150-450); RED BLOOD COUNT 4.52 10^6/uL (3.72-5.28); RED CELL DISTRIBUTION WIDTH 14.7 % (11.5-14.0); RETICULOCYTE COUNT (AUTO) 1.18 % (0.66-2.85); SEGMENTED NEUTROPHILS % (AUTO) 57.9 % (42-78); TOTAL CELLS COUNTED % (AUTO) 100 %; WHITE BLOOD COUNT 4.5 10^3/uL (4.0-10.5)
[2019-09-06 13:45] LABS: ALBUMIN 3.7 g/dL (3.5-5.0); ALKALINE PHOSPHATASE 71 U/L (38-126); ANION GAP 6 (5-19); ASPARTATE AMINO TRANSFERASE 31 U/L (14-36); BILIRUBIN,DIRECT 0.2 mg/dL (0.0-0.4); BILIRUBIN,TOTAL 0.5 mg/dL (0.2-1.3); BLOOD UREA NITROGEN 12 mg/dL (7-20); CALCIUM 9.5 mg/dL (8.4-10.2); CARBON DIOXIDE 30 mmol/L (22-30); CHLORIDE 105 mmol/L (98-107); GLUCOSE 88 mg/dL (75-110); IRON(TIBC) 71.8 ug/dL (37-170); TOTAL PROTEIN 7.2 g/dL (6.3-8.2)
[2019-09-06] MEDS ORDERED: ACETAMINOPHEN 325 MG TABLET PO ONE (13:47)
--- NOTE | 2019-09-06 14:02 | ER Document Report ---
ED General - General Chief Complaint: High Blood Pressure Stated Complaint: BLOOD PRESSURE ISSUES Time Seen by Provider: 09/06/19 12:15 Primary Care Provider: [facility] [Provider Group] - Follow up in 3-5 days YADY QUILES MD [ACTIVE STAFF] - Follow up in 3-5 days Mode of Arrival: Ambulatory Notes: 59-year-old female with history of hypertension presents with frontal headache and possibly low iron. Patient states she went to clinic this morning and was told that she had low iron and was told to increase her iron intake. Patient also states she is has a frontal headache that she is not taken anything for. Patient states nothing makes it better nothing makes it worse. Patient does states she has had headaches like this in the past. Patient denies any visual changes, chest pain, dizziness, dyspnea, nausea/vomiting, abdominal pain. TRAVEL OUTSIDE OF THE [place] IN LAST 30 DAYS: No - Related Data Allergies/Adverse Reactions: No Known Allergies Allergy (Verified 09/06/19 12:22) Home Medications: Medications for HTN and thyroid Past Medical History - General Information source: Patient - Social History Smoking Status: Never Smoker Frequency of alcohol use: None Drug Abuse: None Family History: Reviewed & Not Pertinent Patient has suicidal ideation: No Patient has homicidal ideation: No - Past Medical History Cardiac Medical History: Reports: Hx Hypertension Denies: Hx Coronary Artery Disease, Hx Heart Attack Pulmonary Medical History: Reports: Hx Asthma - YEARS AGO Denies: Hx Bronchitis, Hx COPD, Hx Pneumonia Neurological Medical History: Denies: Hx Cerebrovascular Accident, Hx Seizures Renal/ Medical History: Denies: Hx Peritoneal Dialysis Musculoskeletal Medical History: Reports Hx Arthritis - RADHAMES HANDS/ FEET Past Surgical History: Reports: Hx Cholecystectomy, Hx Hysterectomy - Immunizations Hx Diphtheria, Pertussis, Tetanus Vaccination: - UNSURE Review of Systems - Review of Systems Notes: Constitutional: Negative for fever. HENT: Negative for sore throat. Eyes: Negative for visual changes. Cardiovascular: Negative for chest pain. Respiratory: Negative for shortness of breath. Gastrointestinal: Negative for abdominal pain, vomiting or diarrhea. Genitourinary: Negative for dysuria. Musculoskeletal: Negative for back pain. Skin: Negative for rash. Neurological: Positive for headaches. Negative for weakness or numbness. 10 point ROS negative except as marked above and in HPI. Physical Exam - Vital signs Vitals: Temp Pulse Resp BP Pulse Ox 98.4 F 79 18 147/63 H 96 09/06/19 12:13 09/06/19 12:13 09/06/19 12:13 09/06/19 12:13 09/06/19 12:13 - Notes Notes: GENERAL: Well-appearing, well-nourished and in no acute distress. HEAD: Atraumatic, normocephalic. EYES: Pupils equal round and reactive to light, extraocular movements intact, sclera anicteric, conjunctiva are normal. NECK: Normal range of motion, supple without lymphadenopathy or JVD. LUNGS: Breath sounds clear to auscultation bilaterally and equal. No wheezes rales or rhonchi. HEART: Regular rate and rhythm without murmurs, rubs or gallops. ABDOMEN: Soft, nontender. No guarding, no rebound. No masses appreciated. EXTREMITIES: Normal range of motion, no pitting or edema. No clubbing or cyanosis. NEUROLOGICAL: Cranial nerves II through XII grossly intact. Normal speech, normal gait. PSYCH: Normal mood, normal affect. SKIN: Warm, Dry, normal turgor, no rashes or lesions noted. Course - Re-evaluation Re-evalutation: 09/06/19 Nontoxic, well appearing 59 y/o female presents for headache and low iron. Pt went to a clinic and was told her iron was low and to increase her iron intake via food. Pt then came to ER for evaluation. Work up was initiated in triage and labs including iron, ferritin, and b12 were drawn. Neuro grossly intact. PE is otherwise unremarkable. BP 132/68 - pt reports compliance with hypertensive medication. CBC reveals no leukocytosis and mild anemia (hemoglobin 11.4). CMP WNL. 09/06/19 14:58 Iron, TIBC, ferritin, B12 WNL. Will discharge pt with follow up with PCP. Return precautions given. All questions/concerns addressed prior to discharge. - Vital Signs Vital signs: Temp Pulse Resp BP Pulse Ox 98.4 F 79 18 139/66 H 96 09/06/19 12:13 09/06/19 12:13 09/06/19 12:13 09/06/19 14:00 09/06/19 12:13 - Laboratory Result Diagrams: 09/06/19 13:10 09/06/19 13:10 Laboratory results interpreted by me: 09/06/19 13:10 Hgb 11.4 L Hct 34.8 L MCV 77 L MCH 25.3 L RDW 14.7 H Discharge - Discharge Clinical Impression: Headache Qualifiers: Headache type: unspecified Headache chronicity pattern: acute headache Intractability: not intractable Qualified Code(s): R51 - Headache Anemia Qualifiers: Anemia type: unspecified type Qualified Code(s): D64.9 - Anemia, unspecified Condition: Stable Disposition: HOME, SELF-CARE Additional Instructions: Your labwork, including iron studies, were reassuring. Please follow up with one of the clinics listed to establish a primary care doctor for further workup. Please return immediately to ER for any worsening symptoms, including chest pain, shortness of breath, visual changes, confusion, fever, nausea/vomiting, worse headache of life, neck pain, diarrhea/constipation, abdominal pain, or any other symptoms that are concerning to you. Referrals: YADY QUILES MD [ACTIVE STAFF] - Follow up in 3-5 days [facility] [Provider Group] - Follow up in 3-5 days
[2019-09-06 14:50] LABS: FOLATE > 20.00 ng/mL (>2.76)
[2019-09-06 15:23] VITALS: BP 145/71
== END 2019-09-06 15:22 | disposition home or self-care (01) ==
LOC: ER 11:32
DX: D64.9 Anemia, unspecified (principal); R51 Headache; I10 Essential (primary) hypertension; J45.909 Unspecified asthma, uncomplicated; Z79.899 Other long term (current) drug therapy
CPT/HCPCS: 99283; 36415; 82607; 82728; 82746; 83540; 83550; 85025; 85045; 80053; A9270